=== PATIENT | female | born 1975 | race Caucasian/White ===

== ENCOUNTER 2017-06-08 13:09 | Outpatient (CLI) | payer BC ==
[2016-05-11 09:00] VITALS: BMI 19.1
[~2017-06-08 13:09] MED LIST: COREG 3.1253.125 MG PO; DIFLUCAN150 MG PO; IBUPROFEN600 MG PO; MEXITIL 150 MG150 MG PO; PERCOCET 5-3251 TAB PO
== END 2017-06-08 13:24 ==
LOC: D.MAMMO 13:09
DX: Z12.31 Encounter for screening mammogram for malignant neoplasm of breast (principal)

== ENCOUNTER → 2020-06-26 17:06 | Outpatient (CLI) | payer BC ==
[2016-05-11 09:00] VITALS: BMI 19.1
== END | disposition home or self-care (01) ==
LOC: D.MAMMO 09:00
PROVIDERS: ATTEND Specialist
DX: Z12.31 Encounter for screening mammogram for malignant neoplasm of breast (principal)